=== PATIENT | female | born 1980 | race Hispanic/Latino ===

== ENCOUNTER 2016-09-06 09:44 | Day surgery (SDC) | payer OTHER ==
[2016-08-30 10:16] VITALS: BMI 23.4
[2016-09-06] MEDS ORDERED: Bupivacaine 0.5% Inj(30mL) ONE (11:29)
[2016-09-06] MEDS ORDERED: Lidocaine 1% Inj (20ml) ONE (11:29)
--- NOTE | 2016-09-06 11:38 | CP.SDSHP ---
Same Day Surgery H & P - History Proposed Procedure: Hemorrhoidectomy Pre-Op Diagnosis: hemorrhoids - Grade IV - Previous Medical/Surgical History Pain: 3. Comments: hemorrhoids developed during - Allergies Allergies: Allergies soy Allergy (Verified 08/30/16 10:17) ITCHING Band-Aid Adverse Reaction (Verified 09/06/16 11:07) RASH Penicillins Adverse Reaction (Verified 08/30/16 10:16) ITCHING chocolate Adverse Reaction (Uncoded 08/30/16 10:18) ITCHING coffee Adverse Reaction (Uncoded 08/30/16 10:19) ITCHING - Current Medications Current Medications: none - Physical Exam Vital Signs: Vital Signs 09/06/16 10:22 Temperature 98 F Pulse Rate 65 Respiratory 18 Rate Blood Pressure 103/49 L O2 Sat by Pulse 98 Oximetry Mental Status: Alert & Oriented x3 Heart: WNL Lungs: WNL GI: WNL - {Optional Preform as Required} Abdomen: WNL Rectal: Other (hemorrhoids, Grade IV) - Impression Impression: 36F with reducible hemorrhoids Pt. Evaluated Today:Candidate for Anesthesia & Procedure: Yes - Date & Time Date: 09/06/16 Time: 11:38 Short Stay Discharge - Short Stay Discharge Admitting Diagnosis/Reason for Visit: K64.2 Disposition: HOME/ ROUTINE Referrals: Lidia Ayala APN [Primary Care Provider] - Progress Note/Discharge Note with Instructions: sitz baths every day after BM f/u in office in 1 week
[2016-09-06] MEDS ORDERED: metroNIDAZOLE 500mg/100ml NS 100 ML IVPB ONE (11:58)
[2016-09-06] MEDS ORDERED: Succinylcholine 200 mg/10 ml Inj IV ONE (12:08)
[2016-09-06] MEDS ORDERED: Midazolam 2 MG/2 ML VIAL ONE (12:08)
[2016-09-06] MEDS ORDERED: Propofol 10 mg/ml Inj (20 ML) ONE (12:08)
[2016-09-06] MEDS ORDERED: Rocuronium 10 mg/ml (5 ml) ONE (12:08)
[2016-09-06] MEDS ORDERED: Lactated Ringer's 1,000 ML IV ONE ×2 (12:19→14:46)
[2016-09-06] MEDS ORDERED: metroNIDAZOLE 500mg/100ml NS IVPB ONE (12:20)
[2016-09-06] MEDS ORDERED: Bupivacaine 0.5% 50 ML IJ ONE (12:33)
[2016-09-06] MEDS ORDERED: HYDROmorphone 0.5 mg/0.5 ml ISec IVP PRN (13:15)
[2016-09-06] MEDS ORDERED: Oxycodone/Acetaminophen 5/325 mg Tab PO PRN (13:17)
--- NOTE | 2016-09-06 13:17 | PCM.SURG1 ---
Surgeon's Initial Post Op Note - Surgeon's Notes Surgeon: Dr King Web Marketing Manager: Dr Bah PGY2 Type of Anesthesia: General Endo Pre-Operative Diagnosis: hemorrhoid Operative Findings: internal and external hemorrhoid single pile Post-Operative Diagnosis: as above Operation Performed: excision of internal and external hemorrhoid - single pile Specimen/Specimens Removed: hemorrhoid Estimated Blood Loss: EBL {In ML}: 5 Blood Products Given: N/A Drains Used: No Drains Post-Op Condition: Good Date of Surgery/Procedure: 09/06/16 Time of Surgery/Procedure: 13:17
[2016-09-06 13:37] VITALS: O2SAT 100
[2016-09-06 15:12] VITALS: RESP 18
[2016-09-06 17:15] VITALS: BP 97/57; PULSE 56; TEMP 97.7
--- NOTE | 2016-10-09 08:45 | OP ---
PROCEDURE DATE: 09/06/2016 OPERATION PERFORMED: Removal of internal and external hemorrhoid, one column. SURGEON: Nitesh King MD JEWELRY FINISHER: Dr. Bah. ANESTHESIA: General anesthesia. PREOPERATIVE DIAGNOSIS: Internal and external hemorrhoid. POSTOPERATIVE DIAGNOSIS: Internal and external hemorrhoid. OPERATIVE PROCEDURE: The patient was taken to the operating room, placed supine on the operating table. After induction of general anesthesia, the patient was placed in modified lithotomy position. The patient was then prepped and draped in a standard surgical fashion. Digital rectal examination was performed and once that was done, a speculum was placed in the anus. At the 12 o'clock position, the patient had a large internal and external hemorrhoid. This was then grasped with a hemorrhoid clamp. The anoderm was then taken down using a #15 blade. Once that was done, the electrocautery was used to take the subcutaneous tissues. Interrupted 3-0 chromic sutures were then used in order to reapproximate the tissues. The tissues were then reapproximated carefully in an interrupted fashion. Once the hemorrhoid was removed completely, this was passed off the field as a specimen. The incision was then completely closed using the interrupted 3-0 Vicryl. The area was then injected with 10 mL of 0.25% Marcaine. The patient was then awakened from anesthesia, transported to the recovery in satisfactory condition. Sponge, instrument and needle counts were correct at the end of the case. Nitesh King MD
== END 2016-09-06 17:53 | disposition home or self-care (01) ==
LOC: H.OPSURG 09:44
PROVIDERS: ATTEND Surgery
DX: K64.2 Third degree hemorrhoids (principal)

== ENCOUNTER 2016-09-19 06:56 | Day surgery (SDC) | payer OTHER ==
[2016-08-30 10:16] VITALS: BMI 23.4
[2016-09-19] MEDS ORDERED: Propofol 10 mg/ml Inj (20 ML) ONE (07:18)
[2016-09-19] MEDS ORDERED: Midazolam 2 MG/2 ML VIAL ONE (07:18)
[2016-09-19] MEDS ORDERED: Lidocaine 2% w Epi 1:100,000 Inj IJ ONE (07:28)
[2016-09-19] MEDS ORDERED: Bupivacaine 0.5% Inj(30mL) ONE (07:28)
[2016-09-19] MEDS ORDERED: Lactated Ringer's 1,000 ML IV ONE (07:40)
--- NOTE | 2016-09-19 07:46 | CP.SDSHP ---
Same Day Surgery H & P - History Proposed Procedure: Excision of right wrist mass Pre-Op Diagnosis: R wrist mass - Previous Medical/Surgical History Previous Surgical History: , hemorrhoidectomy - Allergies Allergies: Allergies soy Allergy (Verified 08/30/16 10:17) ITCHING Band-Aid Adverse Reaction (Verified 09/06/16 11:07) RASH Penicillins Adverse Reaction (Verified 08/30/16 10:16) ITCHING chocolate Adverse Reaction (Uncoded 08/30/16 10:18) ITCHING coffee Adverse Reaction (Uncoded 08/30/16 10:19) ITCHING - Current Medications Current Medications: none - Physical Exam General Appearance: well nourished, A+Ox3, NAD Vital Signs: Vital Signs 09/19/16 09/19/16 07:19 07:21 Temperature 97.5 F L Pulse Rate 86 86 Respiratory 18 Rate Blood Pressure 105/57 L O2 Sat by Pulse 100 Oximetry Mental Status: Alert & Oriented x3 Neuro: WNL Heart: WNL Lungs: WNL GI: WNL - {Optional Preform as Required} Other Pertinent Findings: R volar radial wrist mass, 2x2 cm, symmetrical, firm, non-tender - Impression Impression: 36F w. R wrist mass, for excision of R wrist mass Pt. Evaluated Today:Candidate for Anesthesia & Procedure: Yes - Date & Time Date: 09/19/16 Time: 07:48 Short Stay Discharge - Short Stay Discharge Admitting Diagnosis/Reason for Visit: K42.9 M67.441 Disposition: HOME/ ROUTINE Referrals: Lidia Ayala APN [Primary Care Provider] - Nitesh King MD [Staff Provider] - Follow-up: Follow up in office 10-14 days Instructions: Ganglion Cyst Removal (DC) Additional Instructions (Diet, Activity): Can remove dressing in 2 days. Leave steri-strips in place.
[2016-09-19] MEDS: DiphenhydrAMINE 50 mg/ml Inj ONE ×2 (08:00→08:25)
[2016-09-19] MEDS ORDERED: Dexamethasone 4 mg/1 ml ONE (08:06)
[2016-09-19] MEDS ORDERED: HYDROmorphone 0.5 mg/0.5 ml ISec IVP PRN (08:58)
[2016-09-19] MEDS ORDERED: Lactated Ringer's 1,000 ML IV SCH (08:58)
--- NOTE | 2016-09-19 09:03 | PCM.SURG1 ---
Surgeon's Initial Post Op Note - Surgeon's Notes Surgeon: Fernando Aerial Photographer: Brandan PGY3 Type of Anesthesia: IV Sedation, Local Pre-Operative Diagnosis: R wrist ganglion cyst Operative Findings: R wrist volar/radial ganglion cyst Post-Operative Diagnosis: same Operation Performed: excision of ganglion cyst Specimen/Specimens Removed: ganglion cyst Estimated Blood Loss: EBL {In ML}: 10 Blood Products Given: N/A Drains Used: No Drains Post-Op Condition: Good Date of Surgery/Procedure: 09/19/16 Time of Surgery/Procedure: 09:03
[2016-09-19 10:00] VITALS: RESP 18
[2016-09-19 11:15] VITALS: BP 108/64; PULSE 68; TEMP 98.1; O2SAT 99
--- NOTE | 2016-10-08 12:42 | OP ---
PROCEDURE DATE: 09/19/2016 OPERATION PERFORMED: Excision of ganglion cyst, right wrist. ANESTHESIA: IV sedation with local. SURGEON: Nitesh King MD CRYPTOANALYSIS TEACHER: ESTIMATED BLOOD LOSS: Minimal. OPERATIVE PROCEEDINGS: As follows; the patient was taken to the operating room, placed supine in the operating table. After being given IV sedation, the right wrist was prepped and draped in the standard surgical fashion. The patient had a volar ganglion cyst at the right wrist. The patient had an incision made in the transverse direction over the ganglion cyst, carried down through the skin subcutaneous tissues using a #15 blade. The subcutaneous tissues were then divided, care was taken to use the electrocautery to achieve hemostasis as the subcutaneous tissues were divided. The ganglion cyst was encountered. Once the cyst was encountered, the area was inspected and the cyst was grasped and pulled upwards. Combination of blunt dissection and sharp dissection was used to go down to the origin of the cyst. Once that was done, a clamp was placed across the base of the cyst and the cyst was divided. The ganglion cyst was then tied using a Vicryl suture. The patient then had several 4-0 Vicryl sutures used to close the subcutaneous tissues over the tendon sheath. The skin was then closed using interrupted 4-0 Monocryl in a subcuticular fashion. The patient then had a pressure dressing applied, was awakened from anesthesia, transported to the recovery room in satisfactory condition. Sponge, instruments, needle counts were correct at the end of the case. Nitesh King MD
== END 2016-09-19 12:40 | disposition home or self-care (01) ==
LOC: H.OPSURG 06:56
PROVIDERS: ATTEND Surgery
DX: M67.441 Ganglion, right hand (principal); D64.9 Anemia, unspecified; M54.5 Low back pain